=== PATIENT | female | born 1940 | race Caucasian/White ===

== ENCOUNTER 2017-09-02 10:57 | Inpatient (IN) ==
[2017-09-02] MEDS ORDERED: ONDANSETRON 4 MG/2 ML VIAL IV STA (11:34)
[2017-09-02] MEDS ORDERED: PANTOPRAZOLE 40 MG VIAL IV STA (11:34)
[2017-09-02] MEDS ORDERED: ONDANSETRON 4 MG/2 ML VIAL ONE (12:08)
[2017-09-02] MEDS ORDERED: PANTOPRAZOLE 40 MG VIAL IV ONE (12:08)
[2017-09-02 12:13] LABS: Basophils # 0.1 10*3/uL (0.0-0.2); Basophils % 0.4 % (0.0-0.8); Eosinophils # 0.1 10*3/uL (0.0-0.87); Eosinophils % 0.6 % (0.00-10.9); Hematocrit 31.8 VOL% (35.7-47.0); Hemoglobin 10.3 GM/DL (12.0-16.0); Immature Granulocytes % 0.6 %; Immature Granulocytes Absolute 0.08 #; Lymphocytes # 1.8 10*3/uL (1.4-4.0); Lymphocytes % 14.5 % (21.3-54.2); Mean Corpuscular HGB Conc 32.4 GM/DL (32-36); Mean Corpuscular Hemoglobin 26 PG (27-34); Mean Corpuscular Volume 80.7 FL (87-102); Mean Platelet Volume 9.1 FL (9.6-12.0); Monocytes # 0.8 10*3/uL (0.11-0.8); Monocytes % 6.5 % (1.7-12.7); Neutrophils # 9.8 10*3/uL (1.4-7.4); Neutrophils % 77.4 % (38.7-73.9); Platelet Count 308 T/CUMM (130-400); Red Blood Count 3.94 MC/CUMM (3.8-5.5); Red Cell Distribution Width 13.7 % (9.3-17.3); White Blood Count 12.7 T/CUMM (4-12)
[2017-09-02 12:21] LABS: PT Patient Result 10.2 SECS
[2017-09-02 12:44] LABS: Alanine Aminotransferase 15 U/L (13-56); Albumin 3.6 G/DL (3.4-5.0); Alkaline Phosphatase 75 U/L (45-117); Aspartate Amino Transferase 32 U/L (0-37); Bilirubin,Total < 0.39 MG/DL (0.2-1.0); Blood Urea Nitrogen 14 MG/DL (7-18); Calcium 8.8 MG/DL (8.5-10.1); Glucose 167 MG/DL (74-106); Osmolality,Calculated 277.8 MOS/KG (273-304); Potassium 4.5 MMOL/L (3.5-5.1); Sodium 137 MMOL/L (136-145); Total Protein 7.3 G/DL (6.4-8.3); Troponin I Only < 0.015 NG/ML (0.00-0.045)
[2017-09-02] MEDS ORDERED: MAGNESIUM SULF RIDER 2 GM in PREMIX 1 EACH IV STA (13:08)
[2017-09-02] MEDS ORDERED: MAGNESIUM SULF RIDER 50 ML IV ONE (13:10)
[2017-09-02] MEDS ORDERED: GLUCAGON 1 MG VIAL IM PRN (14:25)
[2017-09-02] MEDS ORDERED: ACETAMINOPHEN 500 MG TABLET PO PRN (14:25)
[2017-09-02] MEDS ORDERED: DEXTROSE 50% 25 GM/50 ML VIAL IV PRN (14:25)
[2017-09-02] MEDS ORDERED: ACETAMINOPHEN 325 MG TABLET PO PRN (14:25)
[2017-09-02] MEDS ORDERED: MORPHINE 2 MG/1 ML SYRINGE IV PRN (14:25)
[2017-09-02] MEDS ORDERED: ONDANSETRON 4 MG/2 ML VIAL IV PRN (14:25)
[2017-09-02] MEDS: SODIUM CHLORIDE 0.9% 1,000 ML IV SCH (15:33)
[2017-09-02] MEDS: INSULIN REGULAR 100 UNIT/ML SUBCUT SCH ×2 (15:34→22:12)
[2017-09-02] MEDS: PRIMIDONE 50 MG TABLET PO SCH ×2 (15:34→22:12)
[2017-09-02] MEDS ORDERED: hydrALAZINE 20 MG/1 ML VIAL IV PRN (15:52)
[2017-09-02] MEDS: metFORMIN 500 MG TABLET PO SCH (16:08)
[2017-09-02] MEDS: GLIMEPIRIDE 2 MG TABLET PO SCH (16:08)
[2017-09-02 18:41] LABS: Hematocrit 28.4 VOL% (35.7-47.0); Hemoglobin 9.5 GM/DL (12.0-16.0)
[2017-09-02] MEDS ORDERED: PRAVASTATIN 40 MG TABLET PO SCH (21:00)
[2017-09-02] MEDS ORDERED: INSULIN GLARGINE 100 UNIT/ML SUBCUT SCH (21:00)
[2017-09-02] MEDS: GABAPENTIN 300 MG CAPSULE PO SCH (22:11)
[2017-09-02] MEDS: DOCUSATE SODIUM 100 MG CAPSULE PO SCH (22:11)
[2017-09-03 07:01] LABS: Basophils % 0.4 % (0.0-0.8); Eosinophils # 0.4 10*3/uL (0.0-0.87); Eosinophils % 5.5 % (0.00-10.9); Hematocrit 31.3 VOL% (35.7-47.0); Hemoglobin 10.2 GM/DL (12.0-16.0); Immature Granulocytes % 0.6 %; Immature Granulocytes Absolute 0.05 #; Lymphocytes # 2.1 10*3/uL (1.4-4.0); Lymphocytes % 26.7 % (21.3-54.2); Mean Corpuscular HGB Conc 32.6 GM/DL (32-36); Mean Corpuscular Hemoglobin 26 PG (27-34); Mean Corpuscular Volume 80.7 FL (87-102); Mean Platelet Volume 9.3 FL (9.6-12.0); Monocytes # 0.9 10*3/uL (0.11-0.8); Monocytes % 11.1 % (1.7-12.7); Neutrophils # 4.3 10*3/uL (1.4-7.4); Neutrophils % 55.7 % (38.7-73.9); Platelet Count 302 T/CUMM (130-400); Red Blood Count 3.88 MC/CUMM (3.8-5.5); Red Cell Distribution Width 14.5 % (9.3-17.3); White Blood Count 7.8 T/CUMM (4-12)
[2017-09-03 07:39] LABS: % Iron Saturation 4.5 % (18-50); Albumin 3.4 G/DL (3.4-5.0); Bilirubin,Total 0.4 MG/DL (0.2-1.0); Calcium 8.8 MG/DL (8.5-10.1); Ferritin 17.6 ng/ml (8-252); Osmolality,Calculated 284.3 MOS/KG (273-304); Potassium 4.3 MMOL/L (3.5-5.1); Total Protein 6.7 G/DL (6.4-8.3)
[2017-09-03] MEDS: INSULIN REGULAR 100 UNIT/ML SUBCUT SCH ×4 (08:58→16:16)
[2017-09-03] MEDS: GLIMEPIRIDE 2 MG TABLET PO SCH ×2 (08:58→16:12)
[2017-09-03] MEDS: metFORMIN 500 MG TABLET PO SCH ×2 (08:58→16:12)
[2017-09-03] MEDS: FERROUS SULFATE 325 MG TABLET PO SCH ×2 (08:59→13:43)
[2017-09-03] MEDS: METOPROLOL SUCCINATE XL 50 MG TABLET PO SCH ×2 (08:59→13:43)
[2017-09-03] MEDS: CETIRIZINE 10 MG TABLET PO SCH ×2 (08:59→13:43)
[2017-09-03] MEDS: DOCUSATE SODIUM 100 MG CAPSULE PO SCH (08:59)
[2017-09-03] MEDS: PRIMIDONE 50 MG TABLET PO SCH ×3 (08:59→14:30)
[2017-09-03] MEDS: amLODIPine 5 MG TABLET PO SCH ×2 (08:59→13:43)
[2017-09-03] MEDS: PANTOPRAZOLE 40 MG TABLET PO SCH ×2 (08:59→13:42)
[2017-09-03] MEDS: GABAPENTIN 300 MG CAPSULE PO SCH (08:59)
[2017-09-03] MEDS ORDERED: PANTOPRAZOLE 40 MG VIAL IV SCH (09:00)
[2017-09-03] MEDS ORDERED: BENZONATATE 100 MG CAPSULE PO PRN (09:03)
[2017-09-03 16:17] VITALS: BP 158/74
[2017-09-03] MEDS: SODIUM CHLORIDE 0.9% 1,000 ML IV SCH (16:21)
[2017-09-03] MEDS ORDERED: INSULIN GLARGINE 100 UNIT/ML SUBCUT SCH (17:00)
== END 2017-09-03 18:51 | disposition home or self-care (01) | DRG 379 ==
LOC: EDUNIT# → N.ED 10:57 → N.EDINP 12:37 → N.2E 14:24
PROVIDERS: ADMIT Family Medicine; ATTEND Family Medicine

== ENCOUNTER 2019-03-31 14:28 | Inpatient (IN) ==
[2019-03-31] MEDS ORDERED: ONDANSETRON 4 MG/2 ML VIAL IV PRN (15:14)
[2019-03-31 15:52] LABS: Basophils % 0.3 % (0.0-0.8); Eosinophils # 0.3 10*3/uL (0.0-0.87); Eosinophils % 1.8 % (0.00-10.9); Hematocrit 38.4 VOL% (35.7-47.0); Hemoglobin 12.2 GM/DL (12.0-16.0); Immature Granulocytes % 0.8 %; Immature Granulocytes Absolute 0.11 #; Lymphocytes # 2.2 10*3/uL (1.4-4.0); Lymphocytes % 15.7 % (21.3-54.2); Mean Corpuscular HGB Conc 31.8 GM/DL (32-36); Mean Corpuscular Volume 79.7 FL (87-102); Monocytes % 8.7 % (1.7-12.7); Neutrophils % 72.7 % (38.7-73.9); Platelet Count 348 T/CUMM (130-400); Red Blood Count 4.82 MC/CUMM (3.8-5.5); White Blood Count 13.7 T/CUMM (4-12)
[2019-03-31 16:13] LABS: INR 0.9; PT Patient Result 10.1 SECS (9.6-12.2); Partial Thromboplastin Time 25.9 SECS (20.8-36.0)
[2019-03-31 16:14] LABS: Alanine Aminotransferase 19 U/L (13-56); Albumin 3.7 G/DL (3.4-5.0); Alkaline Phosphatase 86 U/L (45-117); Aspartate Amino Transferase 39 U/L (0-37); Bilirubin,Total < 0.39 MG/DL (0.2-1.0); Blood Urea Nitrogen 19 MG/DL (7-18); Calcium 9.8 MG/DL (8.5-10.1); Estimated Glom Filtration Rate 56 ML/MIN; Glucose 234 MG/DL (74-106); Osmolality,Calculated 284.7 MOS/KG (273-304); Total Protein 8.2 G/DL (6.4-8.3)
[2019-03-31] MEDS ORDERED: GLUCAGON 1 MG VIAL IM PRN (18:07)
[2019-03-31] MEDS ORDERED: DEXTROSE 50% 25 GM/50 ML VIAL IV PRN (18:07)
[2019-03-31] MEDS ORDERED: INFLUENZA VIRUS VACCINE 0.5 ML SYRINGE IM ONE (19:52)
[2019-03-31] MEDS: INSULIN REGULAR 100 UNIT/ML SUBCUT SCH (20:45)
[2019-03-31] MEDS: GLIMEPIRIDE 2 MG TABLET PO SCH (20:58)
[2019-03-31] MEDS: PANTOPRAZOLE 40 MG VIAL IV SCH (20:58)
[2019-03-31] MEDS: INSULIN GLARGINE 100 UNIT/ML SUBCUT SCH (20:58)
[2019-03-31] MEDS: FERROUS SULFATE 325 MG TABLET PO SCH (20:58)
[2019-04-01 05:11] LABS: Basophils % 0.3 % (0.0-0.8); Eosinophils # 0.3 10*3/uL (0.0-0.87); Eosinophils % 3.3 % (0.00-10.9); Hematocrit 35.5 VOL% (35.7-47.0); Hemoglobin 11.2 GM/DL (12.0-16.0); Immature Granulocytes % 0.4 %; Immature Granulocytes Absolute 0.04 #; Lymphocytes # 2.4 10*3/uL (1.4-4.0); Lymphocytes % 25.2 % (21.3-54.2); Mean Corpuscular HGB Conc 31.5 GM/DL (32-36); Mean Corpuscular Volume 80.1 FL (87-102); Mean Platelet Volume 8.7 FL (9.6-12.0); Monocytes % 12.7 % (1.7-12.7); Neutrophils % 58.1 % (38.7-73.9); Platelet Count 284 T/CUMM (130-400); Red Blood Count 4.43 MC/CUMM (3.8-5.5); White Blood Count 9.6 T/CUMM (4-12)
[2019-04-01 05:42] LABS: Bilirubin,Total 0.7 MG/DL (0.2-1.0); Calcium 8.9 MG/DL (8.5-10.1); Osmolality,Calculated 279.4 MOS/KG (273-304); Total Protein 6.9 G/DL (6.4-8.3)
[2019-04-01] MEDS: INSULIN REGULAR 100 UNIT/ML SUBCUT SCH ×4 (07:22→22:22)
[2019-04-01] MEDS: PANTOPRAZOLE 40 MG VIAL IV SCH ×2 (08:58→20:52)
[2019-04-01] MEDS: GLIMEPIRIDE 2 MG TABLET PO SCH ×2 (09:11→20:52)
[2019-04-01] MEDS: amLODIPine 5 MG TABLET PO SCH (09:11)
[2019-04-01] MEDS: METOPROLOL SUCCINATE XL 100 MG TABLET PO SCH (09:11)
[2019-04-01] MEDS: hydroCHLOROthiazide 12.5 MG CAPSULE PO SCH (09:11)
[2019-04-01] MEDS: POTASSIUM CHLORIDE RIDER 10 MEQ in PREMIX 1 EACH IV PRN ×3 (15:27→19:28)
[2019-04-01] MEDS: FERROUS SULFATE 325 MG TABLET PO SCH (20:52)
[2019-04-01] MEDS: INSULIN GLARGINE 100 UNIT/ML SUBCUT SCH (22:23)
[2019-04-02 05:56] LABS: Basophils % 0.3 % (0.0-0.8); Eosinophils # 0.2 10*3/uL (0.0-0.87); Hematocrit 38.4 VOL% (35.7-47.0); Immature Granulocytes % 0.6 %; Immature Granulocytes Absolute 0.05 #; Lymphocytes # 1.5 10*3/uL (1.4-4.0); Lymphocytes % 16.9 % (21.3-54.2); Mean Corpuscular HGB Conc 31.3 GM/DL (32-36); Mean Corpuscular Volume 81.4 FL (87-102); Mean Platelet Volume 9.1 FL (9.6-12.0); Monocytes % 9.2 % (1.7-12.7); Platelet Count 300 T/CUMM (130-400); Red Blood Count 4.72 MC/CUMM (3.8-5.5); Red Cell Distribution Width 16.9 % (9.3-17.3)
[2019-04-02 06:25] LABS: Calcium 9.3 MG/DL (8.5-10.1)
[2019-04-02] MEDS: INSULIN REGULAR 100 UNIT/ML SUBCUT SCH ×4 (07:48→21:41)
[2019-04-02] MEDS: METOPROLOL SUCCINATE XL 100 MG TABLET PO SCH (09:53)
[2019-04-02] MEDS: hydroCHLOROthiazide 12.5 MG CAPSULE PO SCH (09:53)
[2019-04-02] MEDS: GLIMEPIRIDE 2 MG TABLET PO SCH ×2 (09:53→21:41)
[2019-04-02] MEDS: amLODIPine 5 MG TABLET PO SCH (09:53)
[2019-04-02] MEDS: PANTOPRAZOLE 40 MG VIAL IV SCH (10:38)
[2019-04-02] MEDS: PANTOPRAZOLE 40 MG TABLET PO SCH (21:40)
[2019-04-02] MEDS: FERROUS SULFATE 325 MG TABLET PO SCH (21:40)
[2019-04-02] MEDS: INSULIN GLARGINE 100 UNIT/ML SUBCUT SCH (21:41)
[2019-04-02] MEDS ORDERED: SODIUM CHLORIDE 0.9% 500 ML IV ONE (22:40)
[2019-04-02 22:41] LABS: Basophils # 0.1 10*3/uL (0.0-0.2); Basophils % 0.4 % (0.0-0.8); Eosinophils # 0.4 10*3/uL (0.0-0.87); Hematocrit 32.9 VOL% (35.7-47.0); Hemoglobin 10.4 GM/DL (12.0-16.0); Immature Granulocytes % 0.5 %; Immature Granulocytes Absolute 0.07 #; Lymphocytes # 4.3 10*3/uL (1.4-4.0); Lymphocytes % 30.9 % (21.3-54.2); Mean Corpuscular HGB Conc 31.6 GM/DL (32-36); Mean Corpuscular Volume 80.6 FL (87-102); Mean Platelet Volume 8.9 FL (9.6-12.0); Monocytes % 10.1 % (1.7-12.7); Neutrophils % 55.1 % (38.7-73.9); Platelet Count 335 T/CUMM (130-400); Red Blood Count 4.08 MC/CUMM (3.8-5.5); Red Cell Distribution Width 16.9 % (9.3-17.3); White Blood Count 13.8 T/CUMM (4-12)
[2019-04-03 05:34] LABS: Basophils % 0.3 % (0.0-0.8); Eosinophils # 0.3 10*3/uL (0.0-0.87); Eosinophils % 2.5 % (0.00-10.9); Hematocrit 30.8 VOL% (35.7-47.0); Hemoglobin 9.7 GM/DL (12.0-16.0); Immature Granulocytes % 0.4 %; Immature Granulocytes Absolute 0.04 #; Lymphocytes # 2.6 10*3/uL (1.4-4.0); Lymphocytes % 26.1 % (21.3-54.2); Mean Corpuscular HGB Conc 31.5 GM/DL (32-36); Mean Corpuscular Volume 81.1 FL (87-102); Mean Platelet Volume 9.1 FL (9.6-12.0); Monocytes % 8.9 % (1.7-12.7); Neutrophils % 61.8 % (38.7-73.9); Platelet Count 318 T/CUMM (130-400)
[2019-04-03] MEDS: INSULIN REGULAR 100 UNIT/ML SUBCUT SCH ×4 (07:44→22:30)
[2019-04-03] MEDS ORDERED: SODIUM CHLORIDE 0.9% 1,000 ML IV PRN (07:52)
[2019-04-03 11:36] LABS: Hematocrit 29.8 VOL% (35.7-47.0); Hemoglobin 9.5 GM/DL (12.0-16.0)
[2019-04-03] MEDS: amLODIPine 5 MG TABLET PO SCH (14:44)
[2019-04-03] MEDS: GLIMEPIRIDE 2 MG TABLET PO SCH ×2 (14:44→20:48)
[2019-04-03] MEDS: hydroCHLOROthiazide 12.5 MG CAPSULE PO SCH (14:44)
[2019-04-03] MEDS: PANTOPRAZOLE 40 MG TABLET PO SCH ×2 (14:45→20:48)
[2019-04-03] MEDS: METOPROLOL SUCCINATE XL 100 MG TABLET PO SCH (14:45)
[2019-04-03 17:11] LABS: Hematocrit 35.5 VOL% (35.7-47.0); Hemoglobin 11.3 GM/DL (12.0-16.0)
[2019-04-03] MEDS: INSULIN GLARGINE 100 UNIT/ML SUBCUT SCH (20:48)
[2019-04-03] MEDS: FERROUS SULFATE 325 MG TABLET PO SCH (20:48)
[2019-04-03 23:29] LABS: Hematocrit 34.8 VOL% (35.7-47.0); Hemoglobin 11.3 GM/DL (12.0-16.0)
[2019-04-04] MEDS: INSULIN REGULAR 100 UNIT/ML SUBCUT SCH ×4 (08:00→20:45)
[2019-04-04] MEDS: GLIMEPIRIDE 2 MG TABLET PO SCH ×2 (09:53→20:45)
[2019-04-04] MEDS: PANTOPRAZOLE 40 MG TABLET PO SCH ×2 (10:00→20:45)
[2019-04-04 10:46] LABS: Basophils % 0.4 % (0.0-0.8); Eosinophils # 0.2 10*3/uL (0.0-0.87); Hematocrit 34.2 VOL% (35.7-47.0); Immature Granulocytes % 0.9 %; Lymphocytes # 2.1 10*3/uL (1.4-4.0); Lymphocytes % 19.2 % (21.3-54.2); Mean Corpuscular HGB Conc 32.2 GM/DL (32-36); Mean Platelet Volume 8.9 FL (9.6-12.0); Monocytes % 9.4 % (1.7-12.7); Neutrophils % 68.1 % (38.7-73.9); Platelet Count 299 T/CUMM (130-400); Red Blood Count 4.12 MC/CUMM (3.8-5.5); Red Cell Distribution Width 16.3 % (9.3-17.3)
[2019-04-04 11:17] LABS: Calcium 9.1 MG/DL (8.5-10.1); Osmolality,Calculated 283.7 MOS/KG (273-304)
[2019-04-04] MEDS: hydroCHLOROthiazide 12.5 MG CAPSULE PO SCH (13:01)
[2019-04-04] MEDS: amLODIPine 5 MG TABLET PO SCH (13:01)
[2019-04-04] MEDS: METOPROLOL SUCCINATE XL 100 MG TABLET PO SCH (13:01)
[2019-04-04] MEDS ORDERED: DEXTROSE 10% 250 ML BAG IV PRN (13:09)
[2019-04-04] MEDS ORDERED: MAGNESIUM SULF RIDER 4 GM in PREMIX 1 EACH IV PRN (13:12)
[2019-04-04] MEDS ORDERED: MAGNESIUM SULF RIDER 2 GM in PREMIX 1 EACH IV PRN (13:12)
[2019-04-04] MEDS: FERROUS SULFATE 325 MG TABLET PO SCH (20:45)
[2019-04-04] MEDS: INSULIN GLARGINE 100 UNIT/ML SUBCUT SCH (20:46)
[2019-04-05 05:42] LABS: Basophils % 0.3 % (0.0-0.8); Eosinophils # 0.4 10*3/uL (0.0-0.87); Eosinophils % 3.7 % (0.00-10.9); Hematocrit 32.3 VOL% (35.7-47.0); Hemoglobin 10.5 GM/DL (12.0-16.0); Immature Granulocytes Absolute 0.11 #; Lymphocytes # 2.3 10*3/uL (1.4-4.0); Lymphocytes % 21.6 % (21.3-54.2); Mean Corpuscular HGB Conc 32.5 GM/DL (32-36); Mean Corpuscular Volume 83.5 FL (87-102); Mean Platelet Volume 8.8 FL (9.6-12.0); Monocytes % 11.7 % (1.7-12.7); Neutrophils % 61.7 % (38.7-73.9); Platelet Count 320 T/CUMM (130-400); Red Blood Count 3.87 MC/CUMM (3.8-5.5); Red Cell Distribution Width 16.5 % (9.3-17.3); White Blood Count 10.8 T/CUMM (4-12)
[2019-04-05 06:06] LABS: Calcium 9.1 MG/DL (8.5-10.1); Osmolality,Calculated 277.4 MOS/KG (273-304)
[2019-04-05] MEDS: INSULIN REGULAR 100 UNIT/ML SUBCUT SCH (07:18)
[2019-04-05 07:50] VITALS: BP 141/65
[2019-04-05] MEDS: GLIMEPIRIDE 2 MG TABLET PO SCH (10:07)
[2019-04-05] MEDS: amLODIPine 5 MG TABLET PO SCH (10:07)
[2019-04-05] MEDS: METOPROLOL SUCCINATE XL 100 MG TABLET PO SCH (10:07)
[2019-04-05] MEDS: hydroCHLOROthiazide 12.5 MG CAPSULE PO SCH (10:07)
[2019-04-05] MEDS: PANTOPRAZOLE 40 MG TABLET PO SCH (10:07)
== END 2019-04-05 11:17 | disposition home or self-care (01) | DRG 378 ==
LOC: N.EDINP 14:28 → N.ED 14:28 → SUATTDRO 17:22 → N.EDINP 19:32 → N.2E 20:25
PROVIDERS: ADMIT Phlebology; ATTEND Internal Medicine